=== PATIENT | female | born 1975 | race Caucasian/White ===

== ENCOUNTER 2021-10-26 05:39 | Inpatient (IN) ==
[2021-10-26] MEDS ORDERED: methylPREDNISolone 125 MG/2 ML VIAL IVP ONE (05:55)
[2021-10-26] MEDS ORDERED: Ipratropium/Albuterol Neb 3 ML IH ONE (05:55)
[2021-10-26 06:19] LABS: Basophils % 0.3 %; Eosinophils # 0.4 K/mcL (0.0-0.6); Eosinophils % 3.5 %; Hematocrit 38.9 % (35.3-44.9); Hemoglobin 12.4 g/dL (11.5-15.4); Immature Granulocytes % 0.4 % (0-4); Lymphocytes # 2.6 K/mcL (0.6-4.6); Lymphocytes % 21.2 %; Mean Corpuscular HGB Conc 31.9 g/dL (31.6-35.5); Mean Corpuscular Hemoglobin 27.3 pg (28.0-33.3); Mean Corpuscular Volume 85.7 fL (83.0-100.0); Monocytes # 0.6 K/mcL (0.0-1.3); Monocytes % 4.6 %; Neutrophils # 8.7 K/mcL (1.6-8.9); Platelet Count 411 K/mcL (140-400); Red Blood Count 4.54 M/mcL (3.82-4.97); Red Cell Distribution Width 12.6 % (11.5-14.5); White Blood Count 12.4 K/mcL (4.3-11.1)
[2021-10-26] MEDS: levoFLOXacin 500 MG/100 ML 500 MG/100 ML BAG IVPB SCH (06:25)
[2021-10-26 06:29] LABS: INR 1.1
[2021-10-26] MEDS ORDERED: levoFLOXacin 500 MG/100 ML 500 MG/100 ML BAG IVPB SCH (06:30)
[2021-10-26 06:32] LABS: Activated Partial Thrombo Time 35.3 Seconds (26.0-36.0)
[2021-10-26 06:41] LABS: Alanine Aminotransferase 10 Units/L (7-52); Albumin 3.7 g/dL (3.5-5.7); Albumin/Globulin Ratio 0.8 (1.1-2.2); Alkaline Phosphatase 103 Units/L (34-104); Aspartate Amino Transferase 16 Units/L (13-39); BUN/Creatinine Ratio 12 (6-26); Bilirubin,Total 0.3 mg/dL (0.3-1.0); Blood Urea Nitrogen 8 mg/dL (6-20); Calcium 8.6 mg/dL (8.6-10.3); Carbon Dioxide 28 mEq/L (23-29); Chloride 98 mEq/L (98-107); Globulin 4.9 g/dL (2.4-3.5); Glucose 125 mg/dL (70-105); Osmolality,Calculated 278 (280-300); Potassium 3.3 mEq/L (3.5-5.1); Sodium 134 mEq/L (136-145); Total Protein 8.6 g/dL (6.4-8.9); Troponin I < 0.03 ng/mL (< 0.04); eGFR For African Americans > 60 (> 60); eGFR For Non-African Americans > 60 (> 60)
[2021-10-26] MEDS ORDERED: Naloxone 0.4 MG/ML INJ IVP PRN (09:52)
[2021-10-26] MEDS ORDERED: 0.9 % Sodium Chloride 1,000 ML IVC SCH (10:00)
[2021-10-26] MEDS: Budesonide/Formoterol 160/4.5 1 PUFF INH IH SCH ×2 (10:42→23:08)
[2021-10-26] MEDS: Ipratropium/Albuterol Neb 3 ML IH PRN ×3 (10:46→23:09)
[2021-10-26] MEDS: MethylPREDNISolone 40 MG/ML VIAL IVP SCH ×2 (12:34→18:21)
[2021-10-26] MEDS: Nicotine 21 MG PATCH.TD24 TD SCH (12:36)
[2021-10-27] MEDS: MethylPREDNISolone 40 MG/ML VIAL IVP SCH ×5 (00:28→23:17)
[2021-10-27] MEDS: *HR* Enoxaparin 40 MG/0.4 ML SYRINGE SQ SCH (05:37)
[2021-10-27] MEDS: Budesonide/Formoterol 160/4.5 1 PUFF INH IH SCH ×2 (09:35→21:35)
[2021-10-27] MEDS: levoFLOXacin 500 MG/100 ML 500 MG/100 ML BAG IVPB SCH (11:07)
[2021-10-27] MEDS: Nicotine 21 MG PATCH.TD24 TD SCH (11:08)
[2021-10-27 11:29] LABS: Basophils % 0.1 %; Hematocrit 32.3 % (35.3-44.9); Hemoglobin 10.3 g/dL (11.5-15.4); Immature Granulocytes % 1.1 % (0-4); Lymphocytes # 1.1 K/mcL (0.6-4.6); Lymphocytes % 3.8 %; Mean Corpuscular HGB Conc 31.9 g/dL (31.6-35.5); Mean Corpuscular Volume 84.6 fL (83.0-100.0); Monocytes # 0.5 K/mcL (0.0-1.3); Monocytes % 1.8 %; Neutrophils # 26.9 K/mcL (1.6-8.9); Platelet Count 362 K/mcL (140-400); Red Blood Count 3.82 M/mcL (3.82-4.97); Segmented Neutrophils % 93.2 %; White Blood Count 28.9 K/mcL (4.3-11.1)
[2021-10-27 12:15] LABS: BUN/Creatinine Ratio 20 (6-26); Blood Urea Nitrogen 11 mg/dL (6-20); Calcium 8.2 mg/dL (8.6-10.3); Carbon Dioxide 25 mEq/L (23-29); Chloride 104 mEq/L (98-107); Glucose 128 mg/dL (70-105); Osmolality,Calculated 285 (280-300); Potassium 4.5 mEq/L (3.5-5.1); Sodium 137 mEq/L (136-145); eGFR For African Americans > 60 (> 60); eGFR For Non-African Americans > 60 (> 60)
[2021-10-27 12:39] LABS: Platelet Estimate Normal (Normal)
[2021-10-27] MEDS ORDERED: Acetylcysteine 10% 10 ML VIAL IH SCH (16:45)
[2021-10-27] MEDS: Acetylcysteine 10% 10 ML VIAL IH SCH ×2 (17:06→21:34)
[2021-10-27] MEDS: Ipratropium/Albuterol Neb 3 ML IH PRN ×2 (17:07→21:34)
[2021-10-27 17:53] LABS: Adenovirus Not Detected (Not Detect); Bordetella Pertussis Not Detected (Not Detect); Chlamydophila pneumoniae Not Detected (Not Detect); Coronavirus 229E Not Detected (Not Detect); Coronavirus HKU1 Not Detected (Not Detect); Coronavirus NL63 Not Detected (Not Detect); Coronavirus OC43 Not Detected (Not Detect); Human Metapneumovirus Not Detected (Not Detect); Human Rhinovirus/Enterovirus Not Detected (Not Detect); Influenza A Subtype 2009 H1 Not Detected (Not Detect); Influenza B Not Detected (Not Detect); Mycoplasma pneumoniae Not Detected (Not Detect); Parainfluenza Virus 1 Not Detected (Not Detect); Parainfluenza Virus 2 Not Detected (Not Detect); Parainfluenza Virus 3 Not Detected (Not Detect); Parainfluenza Virus 4 Not Detected (Not Detect); Respiratory Syncytial Virus Not Detected (Not Detect); SARS-CoV-2 Not Detected (Not Detect)
[2021-10-27] MEDS: Piperacillin/Tazobactam 3.375 GM in 0.9 % Sodium Chloride Mini Bag 100 ML IVPB SCH (17:54)
[2021-10-28] MEDS: Piperacillin/Tazobactam 3.375 GM in 0.9 % Sodium Chloride Mini Bag 100 ML IVPB SCH ×2 (00:45→07:49)
[2021-10-28] MEDS: Acetylcysteine 10% 10 ML VIAL IH SCH ×2 (03:19→09:14)
[2021-10-28] MEDS: Ipratropium/Albuterol Neb 3 ML IH PRN ×2 (03:20→09:14)
[2021-10-28] MEDS: MethylPREDNISolone 40 MG/ML VIAL IVP SCH ×2 (04:49→12:44)
[2021-10-28] MEDS: *HR* Enoxaparin 40 MG/0.4 ML SYRINGE SQ SCH (05:25)
[2021-10-28 06:41] VITALS: BP 110/61; PULSE 103; TEMP 97.6
[2021-10-28 07:31] LABS: Basophils % 0.1 %; Hematocrit 34.4 % (35.3-44.9); Hemoglobin 11.1 g/dL (11.5-15.4); Immature Granulocytes % 0.8 % (0-4); Lymphocytes # 0.8 K/mcL (0.6-4.6); Lymphocytes % 3.9 %; Mean Corpuscular HGB Conc 32.3 g/dL (31.6-35.5); Mean Corpuscular Hemoglobin 27.6 pg (28.0-33.3); Mean Corpuscular Volume 85.6 fL (83.0-100.0); Mean Platelet Volume 8.9 fL (9.4-12.4); Monocytes # 0.3 K/mcL (0.0-1.3); Monocytes % 1.5 %; Neutrophils # 18.9 K/mcL (1.6-8.9); Platelet Count 373 K/mcL (140-400); Red Blood Count 4.02 M/mcL (3.82-4.97); Red Cell Distribution Width 13.4 % (11.5-14.5); Segmented Neutrophils % 93.7 %; White Blood Count 20.2 K/mcL (4.3-11.1)
[2021-10-28 07:49] LABS: BUN/Creatinine Ratio 18 (6-26); Blood Urea Nitrogen 11 mg/dL (6-20); Calcium 8.7 mg/dL (8.6-10.3); Carbon Dioxide 26 mEq/L (23-29); Chloride 103 mEq/L (98-107); Glucose 189 mg/dL (70-105); Magnesium 1.8 mg/dL (1.6-2.6); Osmolality,Calculated 290 (280-300); Potassium 3.6 mEq/L (3.5-5.1); Sodium 138 mEq/L (136-145); eGFR For African Americans > 60 (> 60); eGFR For Non-African Americans > 60 (> 60)
[2021-10-28] MEDS: Nicotine 21 MG PATCH.TD24 TD SCH (08:53)
[2021-10-28] MEDS: Budesonide/Formoterol 160/4.5 1 PUFF INH IH SCH (09:14)
[2021-10-28 09:18] VITALS: RESP 18
[2021-10-28 10:32] VITALS: O2SAT 95
== END 2021-10-28 15:33 | disposition home or self-care (01) | DRG 133 ==
LOC: INPPIK 05:39 → EMEROOPIK 05:39 → INPPIK 10:10
PROVIDERS: ADMIT Internal Medicine; ATTEND Internal Medicine